=== PATIENT | male | born 1975 | race Caucasian/White ===

== ENCOUNTER → 2023-02-01 | Outpatient (CLI) | payer MEDICAID ==
[~2023-02-01] MED LIST: ACET1TAB55 PO; BACT800T5 PO; OMEP-173 PO; SENN-186 PO; TEMO140C14 PO; TEMO20CA21 PO; TEMO5CAP17 PO
== END ==
LOC: M ONCR 12:27
PROVIDERS: ATTEND General Practice
DX: C71.7 Malignant neoplasm of brain stem (principal); F17.210 Nicotine dependence, cigarettes, uncomplicated

== ENCOUNTER → 2023-02-20 | Outpatient (RCR) | payer MEDICAID ==
[~2023-02-20] MED LIST changes: +ACYC1TAB PO; +LACT20EL PO; +MECL-136 PO; +ONDA-84 PO; +TEMO100C17 PO; +[UNRECOGNIZED DRUG - CODE] PO
== END ==
LOC: M ONCR 02-04 10:07
PROVIDERS: ATTEND General Practice
DX: C71.7 Malignant neoplasm of brain stem (principal)

== ENCOUNTER 2023-03-11 09:38 | Outpatient (RCR) | payer MEDICAID ==
[~2023-03-11 09:38] MED LIST changes: -TEMO100C17 PO; -[UNRECOGNIZED DRUG - CODE] PO
[2023-03-11] MEDS ORDERED: TEMO100C17 PO (16:22)
[2023-03-11] MEDS ORDERED: [UNRECOGNIZED DRUG - CODE] PO (16:22)
[2023-03-12] MEDS ORDERED: [UNRECOGNIZED DRUG - CODE] PO (09:55)
[2023-03-12] MEDS ORDERED: TEMO100C17 PO (09:55)
[2023-03-22] MEDS ORDERED: TEMO100C17 PO (11:44)
[2023-03-22] MEDS ORDERED: TEMO140C14 PO (11:44)
== END 2023-03-22 ==
LOC: M ONCR 09:38
PROVIDERS: ATTEND General Practice
DX: C71.7 Malignant neoplasm of brain stem (principal)

== ENCOUNTER → 2023-04-09 | Outpatient (CLI) | payer MEDICAID, OTHER ==
[~2023-04-09] MED LIST changes: +TEMO100C17 PO; +[UNRECOGNIZED DRUG - CODE] PO
== END ==
LOC: M ONCR 12:35
PROVIDERS: ATTEND General Practice
DX: H53.8 Other visual disturbances (principal); R27.9 Unspecified lack of coordination; R47.01 Aphasia; Z92.21 Personal history of antineoplastic chemotherapy; Z92.3 Personal history of irradiation

== ENCOUNTER → 2023-04-17 | Outpatient (CLI) | payer MEDICAID, OTHER ==
[~2023-04-17] MED LIST changes: +DEXA4TA PO; +PROHANCE 279.3MG/ML 15ML VIAL As Ordered ONE; +PROHANCE 279.3MG/ML 5ML VIAL As Ordered ONE
== END ==
LOC: M RAD 15:20
PROVIDERS: ATTEND General Practice
DX: C71.7 Malignant neoplasm of brain stem (principal)
CPT/HCPCS: 70553; A9576

== ENCOUNTER → 2023-04-30 | Outpatient (CLI) | payer OTHER ==
[~2023-04-30] MED LIST changes: -PROHANCE 279.3MG/ML 15ML VIAL As Ordered ONE; -PROHANCE 279.3MG/ML 5ML VIAL As Ordered ONE; +TOPI-254 PO
== END ==
LOC: M ONCR 12:58
PROVIDERS: ATTEND General Practice
DX: C71.7 Malignant neoplasm of brain stem (principal); F17.210 Nicotine dependence, cigarettes, uncomplicated; Z79.899 Other long term (current) drug therapy; Z92.21 Personal history of antineoplastic chemotherapy; Z92.3 Personal history of irradiation

== ENCOUNTER → 2023-06-06 | Outpatient (CLI) | payer OTHER, MEDICAID ==
[~2023-06-06] MED LIST changes: +PRED5TA PO
== END ==
LOC: M ONCR 08:44
PROVIDERS: ATTEND General Practice
DX: C71.7 Malignant neoplasm of brain stem (principal); R47.1 Dysarthria and anarthria; H51.0 Palsy (spasm) of conjugate gaze; F17.210 Nicotine dependence, cigarettes, uncomplicated; Z71.2 Person consulting for explanation of examination or test findings; Z79.899 Other long term (current) drug therapy; Z92.21 Personal history of antineoplastic chemotherapy; Z92.3 Personal history of irradiation

== ENCOUNTER → 2023-07-29 | Outpatient (CLI) | payer OTHER ==
[~2023-07-29] MED LIST changes: +PROHANCE 279.3MG/ML 15ML VIAL ONE; +PROHANCE 279.3MG/ML 5ML VIAL ONE
== END ==
LOC: M PLAIMG 12:59
PROVIDERS: ATTEND General Practice
DX: C71.7 Malignant neoplasm of brain stem (principal)
CPT/HCPCS: 70553; A9576

== ENCOUNTER → 2023-08-02 | Outpatient (CLI) | payer OTHER ==
[~2023-08-02] MED LIST changes: -PROHANCE 279.3MG/ML 15ML VIAL ONE; -PROHANCE 279.3MG/ML 5ML VIAL ONE
== END ==
LOC: M ONCR 10:46
PROVIDERS: ATTEND General Practice
DX: C71.7 Malignant neoplasm of brain stem (principal); R42 Dizziness and giddiness; H51.8 Other specified disorders of binocular movement; F17.210 Nicotine dependence, cigarettes, uncomplicated; Z71.2 Person consulting for explanation of examination or test findings; Z92.21 Personal history of antineoplastic chemotherapy; Z92.3 Personal history of irradiation

== ENCOUNTER → 2023-11-18 | Outpatient (CLI) | payer OTHER ==
[~2023-11-18] MED LIST changes: +PROHANCE 279.3MG/ML 15ML VIAL As Ordered ONE; +PROHANCE 279.3MG/ML 5ML VIAL As Ordered ONE; +TOPI-21 PO; -TOPI-254 PO
== END ==
LOC: M RAD 12:25
PROVIDERS: ATTEND General Practice
DX: C71.0 Malignant neoplasm of cerebrum, except lobes and ventricles (principal)
CPT/HCPCS: 70553; A9576

== ENCOUNTER → 2024-02-24 | Outpatient (CLI) | payer OTHER | LOC: M RAD 12:15 | PROVIDERS: ATTEND General Practice | DX: C71.7 Malignant neoplasm of brain stem (principal) | CPT/HCPCS: 70553; A9576 ==

== ENCOUNTER → 2024-03-02 | Outpatient (CLI) | payer OTHER ==
[~2024-03-02] MED LIST changes: -PROHANCE 279.3MG/ML 15ML VIAL As Ordered ONE; -PROHANCE 279.3MG/ML 5ML VIAL As Ordered ONE
== END ==
LOC: M ONCR 10:14
PROVIDERS: ATTEND General Practice
DX: C71.7 Malignant neoplasm of brain stem (principal); F17.210 Nicotine dependence, cigarettes, uncomplicated; Z71.2 Person consulting for explanation of examination or test findings; Z92.21 Personal history of antineoplastic chemotherapy; Z92.3 Personal history of irradiation

== ENCOUNTER → 2024-06-08 | Outpatient (CLI) | payer OTHER ==
[~2024-06-08] MED LIST changes: +PROHANCE 279.3MG/ML 15ML VIAL As Ordered ONE; +PROHANCE 279.3MG/ML 5ML VIAL As Ordered ONE
== END ==
LOC: M RAD 08:26
PROVIDERS: ATTEND General Practice
DX: C71.7 Malignant neoplasm of brain stem (principal)
CPT/HCPCS: 70553; A9576

== ENCOUNTER → 2024-06-15 | Outpatient (CLI) | payer OTHER ==
[~2024-06-15] MED LIST changes: -PROHANCE 279.3MG/ML 15ML VIAL As Ordered ONE; -PROHANCE 279.3MG/ML 5ML VIAL As Ordered ONE
== END ==
LOC: M ONCR 10:01
PROVIDERS: ATTEND General Practice
DX: C71.7 Malignant neoplasm of brain stem (principal); F17.210 Nicotine dependence, cigarettes, uncomplicated; Z92.21 Personal history of antineoplastic chemotherapy; Z92.3 Personal history of irradiation

== ENCOUNTER → 2024-09-11 | Outpatient (CLI) | payer OTHER ==
[~2024-09-11] MED LIST changes: +PROHANCE 279.3MG/ML 15ML VIAL As Ordered ONE; +PROHANCE 279.3MG/ML 5ML VIAL As Ordered ONE
== END ==
LOC: M RAD 10:21
PROVIDERS: ATTEND General Practice
DX: C71.7 Malignant neoplasm of brain stem (principal); G93.0 Cerebral cysts
CPT/HCPCS: 70553; A9576

== ENCOUNTER → 2024-09-18 | Outpatient (CLI) | payer OTHER ==
[~2024-09-18] MED LIST changes: -PROHANCE 279.3MG/ML 15ML VIAL As Ordered ONE; -PROHANCE 279.3MG/ML 5ML VIAL As Ordered ONE
== END ==
LOC: M ONCR 09:58
PROVIDERS: ATTEND General Practice
DX: C71.7 Malignant neoplasm of brain stem (principal); F17.210 Nicotine dependence, cigarettes, uncomplicated; Z92.21 Personal history of antineoplastic chemotherapy; Z92.3 Personal history of irradiation

== ENCOUNTER → 2024-12-10 | Outpatient (CLI) | payer OTHER ==
[~2024-12-10] MED LIST changes: +PROHANCE 279.3MG/ML 15ML VIAL As Ordered ONE; +PROHANCE 279.3MG/ML 5ML VIAL As Ordered ONE
== END ==
LOC: M RAD 14:42
PROVIDERS: ATTEND General Practice
DX: C71.7 Malignant neoplasm of brain stem (principal); J32.4 Chronic pansinusitis
CPT/HCPCS: 70553; A9576

== ENCOUNTER → 2024-12-17 | Outpatient (CLI) | payer OTHER ==
[~2024-12-17] MED LIST changes: -PROHANCE 279.3MG/ML 15ML VIAL As Ordered ONE; -PROHANCE 279.3MG/ML 5ML VIAL As Ordered ONE
== END ==
LOC: M ONCR 11:26
PROVIDERS: ATTEND General Practice
DX: H53.2 Diplopia (principal); R47.1 Dysarthria and anarthria

== ENCOUNTER → 2025-03-31 | Outpatient (CLI) | payer OTHER ==
[~2025-03-31] MED LIST changes: +ACYC-438 PO; -ACYC1TAB PO
== END ==
LOC: M ONCR 14:26
PROVIDERS: ATTEND General Practice
DX: D49.6 Neoplasm of unspecified behavior of brain (principal); Z71.2 Person consulting for explanation of examination or test findings

== ENCOUNTER → 2025-06-23 | Outpatient (CLI) | payer OTHER ==
[~2025-06-23] MED LIST changes: +PROHANCE 279.3MG/ML 15ML VIAL As Ordered ONE; +PROHANCE 279.3MG/ML 5ML VIAL As Ordered ONE
== END ==
LOC: M RAD 10:42
PROVIDERS: ATTEND General Practice
DX: C71.7 Malignant neoplasm of brain stem (principal)
CPT/HCPCS: 70553; A9576

== ENCOUNTER → 2025-06-30 | Outpatient (CLI) | payer OTHER ==
[~2025-06-30] MED LIST changes: -PROHANCE 279.3MG/ML 15ML VIAL As Ordered ONE; -PROHANCE 279.3MG/ML 5ML VIAL As Ordered ONE
== END ==
LOC: M ONCR 13:04
PROVIDERS: ATTEND General Practice
DX: C71.7 Malignant neoplasm of brain stem (principal); F17.210 Nicotine dependence, cigarettes, uncomplicated; Z92.21 Personal history of antineoplastic chemotherapy; Z92.3 Personal history of irradiation